=== PATIENT | male | born 1985 | race African-American/Black ===

== ENCOUNTER 2018-12-08 00:17 | Emergency (ER) | payer MEDICAID ==
[2018-12-08] MEDS: DIAZEPAM 5 MG TAB PO (04:40)
[2018-12-08] MEDS: KETOROLAC 60 MG INJ IM (04:40)
[2018-12-08] MEDS: METHYLPREDNISOLONE 125 MG INJ IM (04:40)
[2018-12-08] MEDS: HYDROCODONE/APAP (5/325) TAB PO (04:40)
== END 2018-12-08 05:18 | disposition home or self-care (01) ==
LOC: FTE 05:18
DX: M54.42 Lumbago with sciatica, left side (principal); F17.210 Nicotine dependence, cigarettes, uncomplicated
CPT/HCPCS: 96372; 99284-25

== ENCOUNTER 2019-01-06 04:40 | Emergency (ER) | payer BC ==
[2019-01-06] MEDS: KETOROLAC 30 MG INJ IM (05:07)
[2019-01-06] MEDS: HYDROmorphONE 2 MG/ML SYG IM (05:07)
[2019-01-06] MEDS: ONDANSETRON (ODT) 4 MG TAB ODT (05:09)
[2019-01-06] MEDS: FAMOTIDINE 20 MG TAB PO (05:09)
== END 2019-01-06 05:59 | disposition home or self-care (01) ==
LOC: FTE 05:59
DX: M54.40 Lumbago with sciatica, unspecified side (principal); Z87.891 Personal history of nicotine dependence
CPT/HCPCS: 96372; 99284-25

== ENCOUNTER 2019-03-09 03:16 | Emergency (ER) | payer BC, MEDICAID | END 2019-03-09 04:10 | disposition home or self-care (01) | LOC: FTE 03:16 | DX: L24.9 Irritant contact dermatitis, unspecified cause (principal); F17.210 Nicotine dependence, cigarettes, uncomplicated | CPT/HCPCS: 99283 ==

== ENCOUNTER 2019-03-29 04:08 | Emergency (ER) | payer BC ==
[2019-03-29] MEDS: DIAZEPAM 5 MG TAB PO (05:46)
[2019-03-29] MEDS: predniSONE 20 MG TAB PO (05:46)
[2019-03-29] MEDS: KETOROLAC 60 MG INJ IM (05:47)
== END 2019-03-29 06:10 | disposition home or self-care (01) ==
LOC: FTE 04:08
DX: M54.42 Lumbago with sciatica, left side (principal); G89.29 Other chronic pain; F17.210 Nicotine dependence, cigarettes, uncomplicated
CPT/HCPCS: 96372; 99284-25

== ENCOUNTER 2019-04-06 04:04 | Emergency (ER) | payer BC ==
[2019-04-06] MEDS: HYDROCODONE/APAP (10/325) TAB PO (06:31)
[2019-04-06] MEDS: ACYCLOVIR 800 MG TAB PO (06:32)
[2019-04-06] MEDS: DOXYCYCLINE 100 MG TAB PO (06:32)
== END 2019-04-06 06:38 | disposition home or self-care (01) ==
LOC: FTE 04:04
DX: L08.9 Local infection of the skin and subcutaneous tissue, unspecified (principal)
CPT/HCPCS: 99283

== ENCOUNTER 2019-05-08 02:16 | Emergency (ER) | payer SELFPAY, BC ==
[2019-05-08] MEDS: KETOROLAC 15 MG INJ IM (03:27)
[2019-05-08] MEDS: DIAZEPAM 10 MG/2 ML SYG IM (03:28)
[2019-05-08] MEDS ORDERED: BACITRACIN/POLYMYXIN 28.35 GM OINT TOP (05:00)
[2019-05-08] MEDS: DEXAMETHASONE 10 MG/ML 1 ML INJ IM (05:09)
[2019-05-08] MEDS: HYDROCODONE/APAP (5/325) TAB PO (05:23)
[2019-05-08] MEDS: BACITRACIN/POLYMYXIN 28.35 GM OINT TOP (05:25)
[2019-05-08] MEDS: DIPHTH/TET/ACEL PERTUSS (ADULT) 0.5 ML VIAL IM* (05:25)
[2019-05-08] MEDS: OLANZAPINE (ODT) 5 MG TAB ODT (09:40)
[2019-05-08] MEDS: IBUPROFEN 800 MG TAB PO (09:40)
[2019-05-08] MEDS: LORAZEPAM 1 MG TAB PO (19:09)
[2019-05-08] MEDS: ACETAMINOPHEN 500 MG TAB PO (19:10)
== END 2019-05-08 23:45 ==
LOC: E/R 02:16
DX: F33.2 Major depressive disorder, recurrent severe without psychotic features (principal); M54.41 Lumbago with sciatica, right side; M54.42 Lumbago with sciatica, left side; F17.210 Nicotine dependence, cigarettes, uncomplicated; R40.2142 Coma scale, eyes open, spontaneous, at arrival to emergency department; R40.2252 Coma scale, best verbal response, oriented, at arrival to emergency department; R40.2362 Coma scale, best motor response, obeys commands, at arrival to emergency department; Z23 Encounter for immunization
CPT/HCPCS: 80053; 80307; 81003; 85025; 90471; 90715; 96372; 99285-25